=== PATIENT | male | born 1945 | race Caucasian/White ===

== ENCOUNTER 2017-10-28 03:39 | Inpatient (IN) | payer MEDICARE ==
[2017-10-28] VITALS (7 sets, daily range): BP systolic 134–212; BP diastolic 72–103
[~2017-10-28] VITALS: Ht 167.6 cm; Wt 109.8 kg
[2017-10-28] MEDS ORDERED: ASPIRIN ONE ×2 (03:51→07:29)
--- NOTE | 2017-10-28 03:51 | NUR ---
NITROGLYCERIN #1 NITRO SPRAY 0.4MG ODT ORDERED BY DR. VERGARA. B/P- 203/98.
--- NOTE | 2017-10-28 03:53 | PCM.EKG ---
[facility] Test Date: 2017-10-28 Test Time: 03:43:17 Pat Name: LEONARDA KUMAR Department: Room: Gender: M Day Porter: LY : 1945 Requested By: JOSEFA VERGARA Order Number: [id number] Reading MD: Measurements Intervals [place] Rate: 75 P: 53 CA: 162 QRS: -65 QRSD: 130 T: 96 QT: 384 QTc: 428 Interpretive Statements Normal sinus rhythm Left axis deviation Nonspecific intraventricular block T wave abnormality, consider lateral ischemia Abnormal ECG No previous ECG available for comparison Please click the below link to view image of tracing.
[2017-10-28] MEDS: ASPIRIN PO PRN ×2 (03:56→09:32)
[2017-10-28 03:58] LABS: BASOPHIL # 0.1 10^3/uL (0.0-0.1); BASOPHIL % 0.6 % (0.0-0.2); EOSINOPHIL # 0.3 10^3/uL (0.0-0.2); EOSINOPHIL % 3.3 % (0.0-5.0); HEMOGLOBIN 15.1 g/dL (13.9-16.3); LYMPHOCYTES % 24.3 % (24.0-44.0); MEAN CELL HGB 31.7 pg (26-34); MEAN CORP VOLUME 93.1 fL (78-100); MEAN PLATELET VOLUME 8.4 fL (7.8-11.0); MONOCYTES % 12.3 % (5.0-12.0); NEUTROPHIL # 4.8 10^3/uL (1.8-7.7); NEUTROPHILS % 59.4 % (41.0-85.0); RED CELL DISTRIBUTION WIDTH 13.2 % (11.5-14.5); WHITE BLOOD CELL 8.1 10^3/uL (4.5-11.0)
[2017-10-28] MEDS ORDERED: NITROSTAT SL PRN (04:00)
--- NOTE | 2017-10-28 04:01 | NUR ---
NITROGLYCERIN #2 NITRO SPRAY 0.4MG ODT DOSE # 2 GIVEN ORDERED. B/P 184/103.
[2017-10-28] MEDS ORDERED: ASPI-484 PO (04:04)
[2017-10-28] MEDS ORDERED: [UNRECOGNIZED DRUG - CODE] PO (04:04)
[2017-10-28] MEDS ORDERED: CLOP75TA PO (04:04)
[2017-10-28] MEDS ORDERED: ESOM20CA PO (04:04)
[2017-10-28] MEDS ORDERED: LOSA100T6 PO (04:04)
[2017-10-28] MEDS ORDERED: METO-237 PO (04:04)
[2017-10-28] MEDS ORDERED: ATOR20TA PO (04:04)
[2017-10-28] MEDS ORDERED: AMLO10TA2 PO (04:04)
[2017-10-28] MEDS ORDERED: LACT1CAP34 PO (04:04)
[2017-10-28] MEDS ORDERED: FENO145T2 PO (04:04)
[2017-10-28] MEDS ORDERED: CHOL500016 PO (04:04)
[2017-10-28] MEDS ORDERED: CYAN10005 PO (04:04)
[2017-10-28] MEDS ORDERED: TAMS0.4C2 PO (04:04)
--- NOTE | 2017-10-28 04:05 | ER.PDOC ---
General Chief Complaint: Chest Pain-Cardiac Nature Stated Complaint: CHEST PAIN Time seen by MD: 04:02 Source: patient Exam Limitations: no limitations History of Present Illness Initial Comments Left chest pain Timing/Duration: 1 hour Severity/Quality: moderate, burning, sharp Radiation: arms (left) Activities at Onset: sleep Prior CP/Workup: Cardiac Cath, Heart Attack Nitro Today/Relief: 0.4 mg x 2 Aspirin Today: 325 mg x 1, Provided By ED Associated Symptoms: cough, heartburn, shortness of breath Allergies: Coded Allergies: No Known Allergies (Unverified , 10/28/17) Home Meds Reported Medications Cholecalciferol (Vitamin D3) (VITAMIN D3) 5,000 Unit Tablet, 1 TAB PO DAILY, # 30 TAB 10/28/17 Cyanocobalamin (Vitamin B-12) (VITAMIN B-12) 1,000 Mcg Tablet, 1 TAB PO DAILY, # 30 TAB 2 Refills 10/28/17 Lactobacillus Acidophilus (Probiotic) 1 Each Capsule, 1 EACH PO DAILY24, CAPSULE 10/28/17 Multivit-Min/FA/Lycopen/Lutein (Centrum Silver Men Tablet) 300 Mcg-600 Mcg-300 Mcg Tablet, 1 TAB PO DAILY24 10/28/17 Aspirin (ASPIR 81) 81 Mg Tablet.dr, 1 TAB PO DAILY, #30 TAB 5 Refills 10/28/17 Esomeprazole Magnesium (NEXIUM) 20 Mg Capsule.dr, 1 CAP PO DAILY, #30 CAP 2 Refills 10/28/17 Tamsulosin Hcl (TAMSULOSIN HCL) 0.4 Mg Cap.er.24h, 1 CAP PO HS, #30 CAP 5 Refills 10/28/17 Amlodipine Besylate (AMLODIPINE BESYLATE) 10 Mg Tablet, 1 TAB PO HS, #30 TAB 5 Refills 10/28/17 Fenofibrate Nanocrystallized (FENOFIBRATE) 145 Mg Tablet, 1 TAB PO DAILY, #30 TAB 5 Refills 10/28/17 Atorvastatin 20MG (LIPITOR 20MG) 20 Mg Tablet, 1 TAB PO DAILY, #90 TAB 1 Refill 10/28/17 Metoprolol Succinate (METOPROLOL SUCCINATE) 50 Mg Tab.er.24h, 1 TAB PO BID, #30 TAB 5 Refills 10/28/17 Losartan Potassium (LOSARTAN POTASSIUM) 100 Mg Tablet, 1 TAB PO DAILY, #30 TAB 5 Refills 10/28/17 Clopidogrel Bisulfate (CLOPIDOGREL) 75 Mg Tablet, 1 TAB PO DAILY, #90 TAB 1 Refill 10/28/17 Past Medical History Medical History: cardiac problems, heart attack, hypertension, thyroid disease Surgical History: appendectomy, stent Social History Smoking: non-smoker Alcohol Use: other Drug Use: none Constitutional: no symptoms reported EENTM: no symptoms reported Respiratory: no symptoms reported Cardiovascular: see HPI Gastrointestinal: see HPI Genitourinary: no symptoms reported Musculoskeletal: no symptoms reported All Other Systems: Reviewed and Negative Physical Exam General Appearance: No Apparent Distress, WD/WN, Obese HEENT: PERRL/EOMI, Normal ENT Inspection, TMs Normal, Pharynx Normal Neck: Non-Tender, Full Range of Motion, Supple, Normal Inspection Respiratory: chest non-tender, lungs clear, normal breath sounds, no respiratory distress, no accessory muscle use Cardiovascular: Normal Peripheral Pulses, Regular Rate, Rhythm, No Edema, No Gallop, No JVD, No Murmur Gastrointestinal: Normal Bowel Sounds, No Organomegaly, No Pulsatile Mass, Non Tender, Soft Extremities: Normal Range of Motion, Non-Tender, Normal Inspection, No Pedal Edema, No Calf Tenderness, Normal Capillary Refill Neurologic/Psychiatric: pluck separator II-XII NML as Tested, No Motor/Sensory Deficits, Alert, Normal Mood/Affect, Oriented x 3 Skin: Normal Color, Warm/Dry Results/Orders Results/Orders Administered Medications Medications (Trade) Dose Ordered Sig/M[place] Route PRN Reason Start Time Stop Time Status Last Admin Dose Admin Aspirin (Aspirin) 325 mg DAILY PRN PO CHEST PAIN 10/28/17 04:00 11/27/17 03:59 10/28/17 03:56 Nitroglycerin (Nitrostat) 0.4 mg PRN PRN SL CHEST PAIN 10/28/17 04:00 11/27/17 03:59 10/28/17 03:56 EKG/XRAY/CT/US EKG: NSR XRAY: chest (No active disease) Departure Time of Disposition: 04:51 Disposition: 01 HOME, SELF-CARE Impression: Primary Impression: Chest pain Condition: Stable Referrals: UNDEFINED,PHYSICIAN (PCP) PRIMARY CARE PROVIDER Comments Admitted to Dr. Gibson Duration or Time Spent with Pa: 60 mins Problem Qualifiers Primary Impression: Chest pain Chest pain type: unspecified Qualified Codes: R07.9 - Chest pain, unspecified JAI,RIVERO E MD Oct 28, 2017 04:05
[2017-10-28] MEDS ORDERED: MORPHINE SULFATE ONE (04:06)
--- NOTE | 2017-10-28 04:06 | NUR ---
NITROGLYCERIN #3 NITRO SPRAY ODT 0.4 MG DOSE #3 GIVEN ORDERED. B/P 151/91. STATES PAIN IS AT A 5 AT THIS TIME.
[2017-10-28] MEDS ORDERED: DILAUDID IV STA (04:07)
[2017-10-28] MEDS ORDERED: ZOFRAN ONE (04:07)
[2017-10-28] MEDS ORDERED: DILAUDID ONE (04:09)
--- NOTE | 2017-10-28 04:11 | NUR ---
REFUSED MEDS: PATIENT SAID PAIN WAS AT A 1-2 AND WOULD LIKE TO HOLD OFF ON PAIN MEDICATION. DR. VERGARA AT BEDSIDE AND AWARE. B/P 134/75 AT THIS TIME.
--- NOTE | 2017-10-28 04:22 | DIREP ---
PROCEDURE:CHEST 1 VIEW COMPARISON:None. INDICATIONS:chest pain FINDINGS: LUNGS/PLEURA:No significant pulmonary parenchymal abnormalities. No effusions. Shallow expansion of the lungs. No definite pneumonia, heart failure or effusions are seen. No evidence for pneumothorax, pneumomediastinum, aortic aneurysm or mediastinal widening is seen. VASCULATURE:Normal. Unremarkable pulmonary vasculature. CARDIAC:Normal. No cardiac silhouette abnormality or cardiomegaly. The cardiac silhouette is magnified on the AP view. MEDIASTINUM:Normal. No visible mass or adenopathy. BONES:Normal. No fracture or visible bony lesion. OTHER:Negative. CONCLUSION:Shallow expansion of the lungs, no definite pneumonia is seen. Dictated by: Mehul Wahl MD on 10/28/2017 at 04:21 AM
[2017-10-28 04:39] LABS: ALANINE AMINOTRANSFERASE(ML) 19 U/L (12-78); ALKALINE PHOSPHATASE 101 U/L (50-136); ASPARTATE AMINO TRANSFERASE 19 U/L (0-35); CARBON DIOXIDE 24.9 mmol/L (20.0-32); GLUCOSE 161 mg/dL (70-110)
--- NOTE | 2017-10-28 04:50 | NUR ---
DR SALVATORE HUBBARD MBA SPEAKING WITH DR CAHSE, PATIENT TO BE ADMITTED TO MED SURG
[2017-10-28] MEDS ORDERED: NITRO-BID TD STA (04:53)
[2017-10-28] MEDS ORDERED: LOVENOX SQ STA (04:53)
--- NOTE | 2017-10-28 04:53 | PRM.ACF1 ---
Date and Time Date and Time Time: 04:52 Admission Criteria Forms CHEST PAIN Clinical Indications for Admission to Inpatient Care (Place 'X' for any and all applicable criteria): Admission is indicated for chest pain and ANY ONE of the following (1)(2)(3)(4)( 5)(6)(7): [x ]I. Angina with acute coronary syndrome (Also use Myocardial Infarction or Angina guideline) [ ]II. Hemodynamic instability indicated by 1 or more of the following(1)(2)(3) (4)(5)(6)(7): [ ]a) Vital sign abnormality not readily corrected by appropriate treatment within 12 to 24 hours indicated by 1 or more of the following: [ ]i. Tachycardia as indicated by 1 or more of the following(1)(2 ): [ ]1. Heart rate greater than 100 beats per minute in adult or child age 6 years or older [ ]2. Heart rate greater than 115 beats per minute in child 3 to 5 years of age [ ]3. Heart rate greater than 125 beats per minute in child 1 or 2 years of age [ ]4. Heart rate greater than 130 beats per minute in 6 to 11 months of age [ ]5. Heart rate greater than 150 beats per minute in 3 to 5 months of age [ ]6. Heart rate greater than 160 beats per minute in 1 or 2 months of age [ ]ii. Hypotension as indicated by ALL of the following (1)(2)(3)(4): [ ]A. Not patient baseline (eg, healthy adult with low SBP) or intentional therapeutic goal (eg, low SBP as treatment goal in heart failure) [ ]B. Low blood pressure as indicated by 1 or more of the following : [ ]1. New onset of SBP less than 90 mm Hg in adult or child 10 years or older [ ]2. New decrease in SBP greater than 40 mm Hg in adult or child 10 years or older [ ]3. Mean arterial pressure[A] less than 70 mm Hg in adult or child 10 years or older [ ]4. New onset of SBP less than sum of 70 mm Hg plus twice patient's age in years in child 1 to 9 years of age [ ]5. New onset of SBP less than 70 mm Hg in infant 1 to 11 months of age [ ]iii. Orthostatic vital sign changes as indicated by 1 or more of the following (1): [ ]A. Fall in SBP of 20 mm Hg or more 1 to 3 minutes after patient sits or stands from recumbent position [ ]B. Fall in DBP of 10 mm Hg or more 1 to 3 minutes after patient sits or stands from recumbent position [ ]b. Vital sign abnormality that is severe indicated by 1 or more of the following: [ ]i. inadequate perfusion indicated by 1 or more of the following [ ]A. Lactic acidosis, with lactic acid greater than 18 mg/dL (2 mmol/L) or base excess < -5mEq/L [ ]B. New abnormal capillary refill (longer than 3 seconds) [ ]C. Other metabolic acidosis (arterial pH < 7.35)not otherwise explanied [ ]D. Myocardial ischemia [ ]E. Altered mental status indicated by 1 or more of the following(1)(2)(3)(4): [ ]1. Confusional state (eg,disorientation,difficulty following commands,deficit in attention) [ ]2. Lethargy (awake or arousal,but with drowsiness;reduced awareness of self and environment) [ ]3. Obtundation(ie,arousal with strong stimuli,lessened interest in environment, slowed responses to stimulation) [ ]4. Stupor (may be arousal but patient does not return to normal baseline level of awareness) [ ]5. Coma (not arousal) [ ]F. Reduced urine output as indicated by 1 or more of the following(1)(2): [ ] 1. Urine output less than 0.5 mL/kg/hour for 6 hours in adult [ ]2. Anuria (urine output less than 0.1 mL/kg/hour) for 4 hours in any age group [ ]3. Reduced output in child as indicated by 1 or more of the following (3): [ ]i. Urine output less than 2 mL/kg/hour for 6 hours in infant younger than 2 years [ ]ii. Urine output less than 1 mL/kg/hour for 6 hours in child younger than 12 years [ ]iii. Urine output less than 0.75 mL/kg/h [ ]ii. Mean arterial pressure[A] less than 60 mm Hg [ ]iii. Mean arterial pressure[A] less than 70 mm Hg after 30 minutes of appropriate treatment (eg, fluid resuscitation) [ ]iv. IV inotropic or vasopressor medication required to maintain adequate blood pressure [ ]v. Sustained heart rate greater than 120 beats per minute in adult or child 6 years or older [ ]III. Respiratory distress as indicated by ALL of the following [ ]a. Patient with 1 or more of the following: [ ]i. Dyspnea (difficulty breathing) [ ]ii. Tachypnea as indicated by respiratory rate of 1 or more of the following(1)(2): [ ]1. Greater than 18 breaths per minute in adult or child age 12 years or older [ ]2. Greater than 22 breaths per minute in child 6 to 11 years of age [ ]3. Greater than 25 breaths per minute in child 3 to 5 years of age [ ]4. Greater than 30 breaths per minute in child 1 or 2 years of age [ ]5. Greater than 40 breaths per minute in infant 6 to 11 months of age [ ]6. Greater than 45 breaths per minute in infant 3 to 5 months of age [ ] 7. Greater than 60 breaths per minute in infant 1 or 2 months of age [ ]iii. Abnormal breathing pattern (eg, chest retractions) [ ]iv. Other evidence of difficulty breathing [ ]b. Evidence of respiratory compromise indicated by 1 or more of the following: [ ]i. Hypoxemia as indicated by 1 or more of the following (1): [ ]1. Previously normal respiratory status with 1 or more of the following: [ ]A. Arterial oxygen saturation (SaO2) less than 90% or arterial partial pressure of oxygen (PO2) less than 60 mm Hg (8.0 kPa) on room air[A] [ ]B. Oxygen required to keep SaO2 greater than 90% or PO2 greater than 60 mm Hg (8.0 kPa) [ ]2. Chronic lung disease with 1 or more of the following (2): [ ]A. New requirement for supplemental oxygen to keep SaO2 at baseline or acceptable level [ ]B. Required supplemental oxygen performable only in acute inpatient setting [ ]ii. Altered mental status indicated by 1 or more of the following(1)(2) (3)(4): [ ]a. Confusional state (eg,disorientation,difficulty following commands,deficit in attention) [ ]b. Lethargy (awake or arousal,but with drowsiness;reduced awareness of self and environment) [ ]c. Obtundation(ie,arousal with strong stimuli,lessened interesting environment, slowed responses to stimulation) [ ]d. Stupor (may be arousal but patient does not return to normal baseline level of awareness) [ ]e. Coma (not arousal) [ ]iii. Other evidence of respiratory compromise (eg, pulmonary edema on chest x-ray) [ ]IV. Chest pain indicative of serious diagnosis other than coronary artery disease (e.g., aortic dissection) Extended stay beyond goal length of stay may be needed for (3)(4) (10) (45) (48) [ ]I. Specific condition diagnosed after evaluation that requires ongoing inpatient care eg.pulmonary embolism, aortic dissection) (49) (50) (51) [ ]II. Myocardial infarction [ ]III.Unstable angina [ ]V. Continued suspicion of acute coronary syndrome with inability to complete needed cardiac evaluation (eg, patient clinically unable to undergo stress testing) [ ]a. Patient may require alternative noninvasive or invasive testing( eg,cardiac catheterization) The original [employer] content created by [employer] has been revised. The portions of the content which have been revised are identified through the use of italic text or in bold , and [employer] has neither reviewed nor approved the modified material. All other unmodified content is copyright [employer]. JOSEFA VERGARA MD Oct 28, 2017 04:53
[2017-10-28] MEDS ORDERED: LOVENOX SQ ONE (04:57)
[2017-10-28] MEDS ORDERED: NITRO-BID TD ONE (04:58)
--- NOTE | 2017-10-28 05:14 | NUR ---
RECEIVED PT TO UNIT VIA W/C ACCOMPANIED BY ER STAFF X1 AND FAMILY X1. PT DENIES PAIN AT THIS TIME, ORIENTED TO ROOM CALL LIGHT IN PATIENT REACH
--- NOTE | 2017-10-28 06:43 | NUR ---
REPORT TO ISELA RIVERS
[2017-10-28] MEDS ORDERED: TOPROL XL PO SCH (09:00)
[2017-10-28] MEDS ORDERED: COZAAR PO SCH (09:00)
[2017-10-28] MEDS ORDERED: ASPIRIN EC PO SCH ×2 (09:00)
[2017-10-28] MEDS ORDERED: LOPRESSOR PO SCH (09:00)
[2017-10-28] MEDS ORDERED: VITAMIN D PO SCH (09:00)
[2017-10-28] MEDS ORDERED: TRICOR PO SCH (09:00)
[2017-10-28] MEDS ORDERED: BACID PO SCH (09:00)
[2017-10-28] MEDS ORDERED: PROTONIX PO SCH (09:00)
[2017-10-28] MEDS ORDERED: PLAVIX PO SCH (09:00)
[2017-10-28] MEDS ORDERED: VITAMIN B-12 PO SCH (09:00)
[2017-10-28] MEDS ORDERED: LOPRESSOR ONE (09:24)
[2017-10-28] MEDS ORDERED: PROTONIX PO ONE (09:25)
[2017-10-28] MEDS ORDERED: VITAMIN D ONE (09:25)
[2017-10-28] MEDS ORDERED: COZAAR ONE (09:25)
[2017-10-28] MEDS ORDERED: TRICOR ONE (09:25)
[2017-10-28] MEDS ORDERED: VITAMIN B-12 ONE (09:25)
[2017-10-28] MEDS ORDERED: BACID ONE (09:26)
[2017-10-28] MEDS ORDERED: PLAVIX ONE (09:26)
--- NOTE | 2017-10-28 10:19 | PRM.DC ---
Discharge Summary Date of Discharge: Oct 28, 2017 Reason for Visit: Chest pain History Present Illness: (1) GERD with apnea SEVERITY: MILD PERSISTENT Status: Chronic ICD Code: K21.9 - Gastro-esophageal reflux disease without esophagitis; R06.81 - Apnea, not elsewhere classified SNOMED: 583738432 Assessment & Plan: Continue PPI, elevated head by pillows or specialty bed (2) GARETT on CPAP SEVERITY: MODERATE PERSISTENT Status: Chronic ICD Code: G47.33 - Obstructive sleep apnea (adult) (pediatric); Z99.89 - Dependence on other enabling machines and devices SNOMED: 79498232, [id number] Assessment & Plan: CPAP at home (3) CAD (coronary artery disease) SEVERITY: MODERATE PERSISTENT Status: Chronic ICD Code: I25.10 - Atherosclerotic heart disease of [place] coronary artery without angina pectoris SNOMED: 31968803 Assessment & Plan: Continue current cardiac medications (4) Chest pain SEVERITY: MILD PERSISTENT Status: Resolved ICD Code: R07.9 - Chest pain, unspecified SNOMED: 51647567 Assessment & Plan: Non-cardiac chest pain General: Alert, Oriented X3, Cooperative, No acute distress HEENT: PERRLA, EOMI Neck: Supple, No JVD Lungs: Clear to auscultation, Normal air movement Heart: Regular rate, Normal S1, Normal S2 Abdomen: Normal bowel sounds, Soft, No tenderness Extremities: No clubbing, No cyanosis, No edema Skin: No breakdown, No significant lesion Neuro: Normal speech, Strength at 5/5 X4 ext, Cranial nerves 3-12 NL Psych/Mental Status: Mood NL Results(Labs/Rad) Laboratory Tests Test 10/28/17 03:45 10/28/17 08:52 10/28/17 09:15 White Blood Count 8.1 10^3/uL Red Blood Count 4.77 10^6/uL Hemoglobin 15.1 g/dL Hematocrit 44.4 % Mean Corpuscular Volume 93.1 fL Mean Corpuscular Hemoglobin 31.7 pg Mean Corpuscular Hemoglobin Concent 34.0 g/dL Red Cell Distribution Width 13.2 % Platelet Count 297 10^3/uL Mean Platelet Volume 8.4 fL Neutrophils (%) (Auto) 59.4 % Lymphocytes (%) (Auto) 24.3 % Monocytes (%) (Auto) 12.3 % Neutrophils # (Auto) 4.8 10^3/uL Lymphocytes # (Auto) 2.0 10^3/uL Monocytes # (Auto) 1.0 10^3/uL Absolute Immature Granulocyte (auto 0.01 10^3 u/L Eosinophils % 3.3 % Basophils % 0.6 % Basophils # 0.1 10^3/uL Eosinophil Count 0.3 10^3/uL Prothrombin Time 9.7 SEC Prothrombin Time INR (Non-Therap) 1.0 Activated Partial Thromboplast Time 23.1 SEC D-Dimer 0.32 mg/L Sodium Level 142 mmol/L Potassium Level 3.7 mmol/L Chloride Level 107.0 mmol/L Carbon Dioxide Level 24.9 mmol/L Anion Gap 13.8 Blood Urea Nitrogen 21 mg/dL Creatinine 1.18 mg/dL Estimated GFR () 73.6 BUN/Creatinine Ratio 17.0 Glucose Level 161 mg/dL Calcium Level 10.0 mg/dL Total Bilirubin 0.5 mg/dL Aspartate Amino Transf (AST/SGOT) 19 U/L Alanine Aminotransferase (ALT/SGPT) 19 U/L Alkaline Phosphatase 101 U/L Total Creatine Kinase 64 U/L 59 U/L Creatine Kinase MB 1.2 ng/mL 1.0 ng/mL Troponin I < 0.02 ng/mL < 0.02 ng/mL Pro-B-Type Natriuretic Peptide 190 pg/mL Total Protein 7.5 g/dL Albumin 3.8 g/dL Globulin 3.7 Percent Immature Gran (Cell Imm) 0.10 % Helicobacter pylori Screen NEGATIVE Scheduled Amlodipine Besylate (Amlodipine Besylate), 1 TAB PO HS, (Reported) Aspirin (Aspir 81), 1 TAB PO DAILY, (Reported) Atorvastatin 20MG (Lipitor 20MG), 1 TAB PO DAILY, (Reported) Cholecalciferol (Vitamin D3) (Vitamin D3), 1 TAB PO DAILY, (Reported) Clopidogrel Bisulfate (Clopidogrel), 1 TAB PO DAILY, (Reported) Cyanocobalamin (Vitamin B-12) (Vitamin B-12), 1 TAB PO DAILY, (Reported) Esomeprazole Magnesium (Nexium), 1 CAP PO DAILY, (Reported) Fenofibrate Nanocrystallized (Fenofibrate), 1 TAB PO DAILY, (Reported) Lactobacillus Acidophilus (Probiotic), 1 EACH PO DAILY24, (Reported) Losartan Potassium (Losartan Potassium), 1 TAB PO DAILY, (Reported) Metoprolol Succinate (Metoprolol Succinate), 1 TAB PO BID, (Reported) Multivit-Min/FA/Lycopen/Lutein (Centrum Silver Men Tablet), 1 TAB PO DAILY24, ( Reported) Tamsulosin Hcl (Tamsulosin Hcl), 1 CAP PO HS, (Reported) Sepsis Evaluation @ Discharge Course Blood Pressure Systolic: 158 Blood Pressure Diastolic: 72 Blood Pressure Mean: 100 Notes see dictated report Plan Discharge Date: Oct 28, 2017 Dicharge DX: 1. Chest pain, 2. GARETT on CPAP, 3. GERD, 4. CAD Discharge Disposition: Stable Plan Resume home medications CPAP at night Follow up with PCP and Cardiology as scheduled Diet and activity as tolerated Discharge plans discussed with patient, he is his own decision maker and does understand and concur with plans Time spent 25 minutes Problem Qualifiers (1) CAD (coronary artery disease): Coronary Disease-Associated Artery/Lesion type: [place] artery [place] vs. transplanted heart: [place] heart Associated angina: without angina Qualified Codes: I25.10 - Atherosclerotic heart disease of [place] coronary artery without angina pectoris NELLI CHASE MD Oct 28, 2017 10:18
--- NOTE | 2017-10-28 10:39 | NUR ---
DISCHARGE PT HAS BEEN DISCHARGED. SALINE LOCK DC'D; CATHETER INTACT. SITE WITHOUT REDNESS OR EDEMA. DISCHARGE INSTRUCTIONS GIVEN; PT EXPRESSED UNDERSTANDING OF DISCHARGE TEACHING.
--- NOTE | 2017-10-28 12:09 | HPH ---
ADMIT DATE: 10/28/2017 HISTORY AND PHYSICAL AND DISCHARGE SUMMARY CHIEF COMPLAINT: Chest pain, chest burning sensation. HISTORY OF PRESENT ILLNESS: The patient is a 71-year-old man with a past medical history significant for hypertension, coronary artery disease, obstructive sleep apnea on CPAP therapy, hyperlipidemia and hypothyroidism. He presented to ER with complaints of one hour of some burning sensation in the epigastric region. He does have a history of heart catheterization with multiple stents placed. He received aspirin and nitroglycerin in the Emergency Room. He is ambulatory. He has a history of sleep apnea and is compliant with CPAP therapy. 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 The last time he saw Cardiology, he said that in the report everything was fine. He has a scheduled appointment in a couple of months with Cardiology again. He states he does have a history of significant reflux disease and at home, has a hospital bed where he can elevate his head of his bed. He is up here visiting a friend and has not been able to do that. He lays flat and has increasing burning sensation in the epigastric region. PAST MEDICAL HISTORY: Includes hypertension, coronary artery disease, hypothyroidism and hyperlipidemia. PAST SURGICAL HISTORY: He has had appendectomy, he has had PTCAs with multiple stents placed. ALLERGIES: NO KNOWN DRUG ALLERGIES. HOME MEDICATIONS: List includes vitamin D and vitamin B daily, probiotic daily, multivitamin daily, aspirin 81 mg daily, Nexium 20 mg daily, tamsulosin 0.4 mg at night, amlodipine 10 mg daily, fenofibrate 145 mg daily, atorvastatin 20 mg daily, metoprolol succinate 50 mg twice a day, losartan 100 mg daily and Plavix 75 mg daily. SOCIAL HISTORY: Lives at home. No alcohol, tobacco or illicit drug use history. FAMILY HISTORY: Negative for early coronary artery disease or diabetes. REVIEW OF SYSTEMS: CARDIAC: He complains of some chest burning, some mild shortness of breath, no dyspnea on exertion. PULMONARY: No cough, sputum production or pleuritic chest pain. GASTROINTESTINAL: No nausea, vomiting, diarrhea or constipation. All else negative in 10 point review of system except as in HPI. PHYSICAL EXAMINATION: VITAL SIGNS: Upon arrival to the ER, height 167.6 cm, weight 109.8 kilograms, BMI 39.1, temperature 98.0, pulse of 84, respiratory rate is 16, blood pressure initially recorded as 203/85 and only 15 minutes later recorded as 134/75 and O2 saturations 92% on room air. GENERAL: He is alert, in no acute distress at time of exam. HEENT: Pupils equal, round, reactive to light. Sclerae are anicteric. Oropharynx is clear. Mucous membranes are moist. NECK: Supple, no lymphadenopathy. CARDIOVASCULAR: At time of exam is regular rate and rhythm. LUNGS: Clear bilaterally. No wheezing. ABDOMEN: Soft, obese. Bowel sounds are present, nontender to palpation. EXTREMITIES: No cyanosis, clubbing or significant edema. NEUROLOGIC: Grossly nonfocal. LABORATORY DATA: CBC: White count 8.1, hemoglobin 15.1 and platelets 297. Differential: 59% neutrophils, 24% lymphocytes, 12% monocytes. Sodium 142, potassium 3.7, chloride 107, CO2 is 25, BUN 21, creatinine 1.18, glucose is 161, calcium is 10.0, total bilirubin 0.5, AST 19, ALT 19, alkaline phosphatase 101, total CK 64, repeat is 59, total CK-MB is 1.2, repeat is 1.0, troponin I is less than 0.02 x 2, ProBNP 190, total protein 7.5 and albumin 3.8. PT of 9.7, PTT 23.1 and D-dimer 0.32. H. pylori is negative. IMAGING STUDIES: Chest x-ray negative for acute process, shallow inspiratory effort. ASSESSMENT AND PLAN: The patient is a 71-year-old man here with likely reflux gastritis and esophagitis with history of hypertension and coronary artery disease. 1. Continue his cardiovascular medications. 2. H. pylori is negative. Continue proton pump inhibitor and continue his process of elevating head of the bed when he sleeps. 3. CPAP at night. 4. The patient is at his baseline. He is feeling well. He denies any chest pain, wants to go home. DISPOSITION: Routine discharge home. DISCHARGE FOLLOWUP: With his primary care physician and Cardiology as scheduled. DISCHARGE MEDICATIONS: Resume his previous medications. DISCHARGE ACTIVITY: As tolerated. DISCHARGE DIET: Will be an AHA diet. Discharge plans were discussed with the patient. He is his own decision maker. He does understand and concur with plans. Mazin Gibson MD DR: GEMA/ana maria JOB# [id number]
[2017-10-28] MEDS ORDERED: NORVASC PO SCH (21:00)
[2017-10-28] MEDS ORDERED: LIPITOR PO SCH (21:00)
[2017-10-28] MEDS ORDERED: FLOMAX PO SCH (21:00)
== END 2017-10-28 10:00 | disposition home or self-care (01) | DRG 313 ==
LOC: ER 03:39 → MS 04:51 → UNDOADMIN 04:51
PROVIDERS: ADMIT Internal Medicine; ATTEND Internal Medicine
DX: R07.89 Other chest pain (principal); I25.10 Atherosclerotic heart disease of native coronary artery without angina pectoris; Z99.81 Dependence on supplemental oxygen; K21.9 Gastro-esophageal reflux disease without esophagitis; E03.9 Hypothyroidism, unspecified; G47.33 Obstructive sleep apnea (adult) (pediatric); E78.5 Hyperlipidemia, unspecified; I10 Essential (primary) hypertension; Z95.5 Presence of coronary angioplasty implant and graft; Z99.89 Dependence on other enabling machines and devices; Z90.49 Acquired absence of other specified parts of digestive tract; Z79.899 Other long term (current) drug therapy; Z79.82 Long term (current) use of aspirin
CPT/HCPCS: 36415; 71045; 80053; 82550; 82553; 83880; 84484; 85025; 85379; 85610; 85730; 86677; 93005; J1170; J1650; J2270; J2405